=== PATIENT | female | born 1935 | race Caucasian/White ===

== ENCOUNTER → 2016-07-26 | Day surgery (SDC) | payer MEDICARE, BC ==
[~2016-07-26] MED LIST: ACETAMINOPHEN 325 MG ONE; ACETAZOLAMIDE 500 MG CER ONE; ACETAZOLAMIDE 500 MG CER PO ONE; BSS W/ 0.25MG P.F. EPI 1 BOTTLE ONE; LIDOCAINE HCL 1% MPF SOL ONE; MIDAZOLAM 2 MG/2 ML SOL ONE; POVIDONE IODINE 5% SOL ONE; TRYPAN BLUE 0.5 ML SOL IO ONE
[2016-07-26 06:18] VITALS: RESP 18
[2016-07-26] MEDS: CYCLOPENTOLATE 1% SOL ONE ×2 (06:21→06:35)
[2016-07-26] MEDS: PROPARACAINE HCL 0.5% OPHTHALMIC SOL ONE ×3 (06:21→07:30)
[2016-07-26] MEDS: PHENYLEPHRINE HCL 10% OPHTHAL SOL ONE ×2 (06:21→06:35)
[2016-07-26 08:47] VITALS: BP 130/62; PULSE 79; TEMP 97; O2SAT 97
== END | disposition home or self-care (01) | DRG 125 ==
LOC: SURG 06:00
PROVIDERS: ATTEND Ophthalmology
DX: H25.9 Unspecified age-related cataract (principal); H21.81 Floppy iris syndrome
CPT/HCPCS: J2250; J2001